=== PATIENT | female | born 1965 | race Caucasian/White ===

== ENCOUNTER → 2023-10-21 | Outpatient (CLI) | payer OTHER ==
--- NOTE | 2023-10-21 11:26 | CA ---
Exercise Stress Test Report Name: Earline Christianson Exam Date: 10/21/2023 10:26 Exam Location: [place] Stress Ht (in): 65 Wt (lb): 180 BSA: 1.89 Ordering Phys: Flo Zuñiga DO Referring Phys: Flo Zuñiga DO Technologist: Vicky Tsai RDCS Age: 58 Gender: F : 1965 Procedure CPT: Indications: I10 ESSENTIAL (PRIMARY) HYPERT,R53.83 ICD-10 Codes: Patient History: Short of breath, palpitations and hypertension Medications: Meds past 24 hrs: Pretest Chest Pain: STRESS TEST Chirag Protocol Exercise Duration (min:sec): 07:[address] Depressions (mm): Angina Score: Newton Score: Resting HR (bpm): 65 Peak HR (bpm): 144 Resting BP (mmHg): 192 / 98 Peak BP (mmHg): / 100 MPHR: 162 Target HR: 138 % MPHR: 89 METS: 8.5 Total Dose: Peak Dose: Atropine: Double Product: BP Response: Stress Termination: Reached target heart rate Stress Symptoms: No chest pain or symptoms Stress Summary: ECG ANALYSIS Resting ECG: Stress ECG: CONCLUSIONS Average exercise capacity of 7 minutes on a Chirag protocol No ECG evidence for ischemia or arrhythmia Patient asymptomatic Dr. Epi Cortes MD (Electronically Signed) Final Date: 21 October 2023 11:24
== END | disposition home or self-care (01) ==
LOC: RADNMMAIN 09:39
PROVIDERS: ATTEND Family Medicine
DX: I10 Essential (primary) hypertension (principal); R53.83 Other fatigue; R00.2 Palpitations; R06.02 Shortness of breath
CPT/HCPCS: 93017